=== PATIENT | male | born 1950 | race Caucasian/White ===

== ENCOUNTER 2017-05-29 09:55 | Outpatient (CLI) | payer MEDICARE ==
--- NOTE | 2017-05-29 10:59 | RAD ---
TWO VIEWS CHEST: HISTORY: Dyspnea. FINDINGS: PA and lateral views of the chest are obtained on 05/29/17. Comparison is made to a previous exam fr om 11/11/13. Two views chest demonstrate lower thoracic and upper lumbar posterior spinal hardware placement. The lungs are well aerated. No evidence of active intrathoracic disease is seen. No evidence of eff usions or pneumonia seen. There is some elevation of the right hemidiaphragm. IMPRESSION: 1. No evidence of acute intrathoracic abnormalities. 2. Elevated right hemidiaphragm. POS: [facility]
== END 2017-05-29 09:56 | disposition home or self-care (01) ==
LOC: RAD 09:55
PROVIDERS: ATTEND Internal Medicine
DX: R06.00 Dyspnea, unspecified (principal); J98.6 Disorders of diaphragm
CPT/HCPCS: 71020

== ENCOUNTER 2017-06-04 07:25 | Outpatient (CLI) | payer MEDICARE | END 2017-06-04 07:26 | disposition home or self-care (01) | LOC: CP 07:25 | PROVIDERS: ATTEND Internal Medicine | DX: R06.09 Other forms of dyspnea (principal); G47.33 Obstructive sleep apnea (adult) (pediatric) ==

== ENCOUNTER 2023-11-23 15:06 | Inpatient (IN) | payer MEDICARE ==
[~2023-11-23 15:06] MED LIST: Iopamidol 370 76% 100 ML VIAL ONE
[2023-11-23] MEDS ORDERED: Heparin 5,000 UNITS/ML VIAL ONE (15:51)
[2023-11-23] MEDS ORDERED: PHENYLEPHRINE-NS 100 MCG/ML 10 ML SYRINGE ONE (15:52)
[2023-11-23] MEDS ORDERED: Heparin 10,000 UNITS/ 10 ML VIAL ONE (15:52)
[2023-11-23] MEDS ORDERED: Atropine Sulfate 1 mg/10 ml Syringe ONE (15:52)
[2023-11-23] MEDS ORDERED: Verapamil 5 MG/2 ML VIAL ONE (15:52)
[2023-11-23] MEDS ORDERED: Nitroglycerin 50 MG/250 ML BOT 0 ML ONE (15:52)
[2023-11-23 16:04] LABS: #Basophils 0.04 10x3/uL (0.0-0.2); %Basophils 0.4 % (0.0-1.0); %Eosinophils 0.5 % (0.0-10.0); %Lymphocytes 12.5 % (21.0-51.0); %Monocytes 9.4 % (0.0-10.0); %Neutrophils 76.9 % (42.0-75.0); Hematocrit 39.8 % (42.0-52.0); Hemoglobin 13.5 g/dL (14.0-18.0); Mean Corpuscular HGB CONC 33.9 g/dL (32.0-36.0); Mean Corpuscular Hemoglobin 30.5 pg (27.0-31.0); Mean Platelet Volume 10.4 fL (7.4-10.4); Platelet Count 264 10x3/uL (130-400); RBC Distribution Width 13.3 % (11.5-14.5); Red Blood Cell (RBC) Count 4.42 mill/uL (4.70-6.10)
[2023-11-23 16:19] LABS: INR-International Normal Ratio 1.2
[2023-11-23 16:20] LABS: PTT 34.4 sec (22.9-36.1)
[2023-11-23 16:31] LABS: ALT (SGPT) 25 U/L (8-55); AST (SGOT) 36 U/L (5-34); Albumin 3.3 g/dL (3.4-4.8); Alkaline Phosphatase 82 U/L (40-110); Anion Gap 16 mmol/L (10-20); BUN (Urea Nitrogen) 45 mg/dL (8.4-25.7); Bilirubin, Total 1.6 mg/dL (0.2-1.2); Calc. Creatinine Clearance 0 mL/min (70-130); Calcium 9.3 mg/dL (7.8-10.44); Carbon Dioxide 22 mmol/L (23-31); Chloride 103 mmol/L (98-107); Estimated GFR 51; Globulin 3.1 g/dL (2.4-3.5); Glucose 238 mg/dL (83-110); Potassium 4.4 mmol/L (3.5-5.1); Protein, Total 6.4 g/dL (5.8-8.1); Sodium 137 mmol/L (136-145)
[2023-11-23 16:36] LABS: Critical Call Chem Troponin I NUR.EM10 @1635; Troponin I 25.249 ng/mL (< 0.028)
[2023-11-23] MEDS ORDERED: Zolpidem Tartrate 5 MG TAB PO PRN (16:39)
[2023-11-23] MEDS ORDERED: Milk Of Magnesia 30 ML UDCUP PO PRN (16:39)
[2023-11-23] MEDS ORDERED: Mag-Al 1200 mg/1200 mg/30 ML UDCUP PO PRN (16:39)
[2023-11-23] MEDS ORDERED: Acetaminophen/Codeine 30-300mg Tablet PO PRN (16:39)
[2023-11-23 17:24] VITALS: BMI 35.2
[2023-11-23] MEDS: Sodium Chloride 0.9% 500 ML IV SCH (18:22)
[2023-11-23 18:24] LABS: Hematocrit 36.9 % (42.0-52.0); Hemoglobin 12.4 g/dL (14.0-18.0); Platelet Count 235 10x3/uL (130-400)
[2023-11-23] MEDS: traMADol HCl 50 MG TAB PO PRN (18:57)
[2023-11-23] MEDS: Heparin 10,000 UNITS/ 10 ML VIAL SLOW IVP SCH (20:01)
[2023-11-23] MEDS: Heparin 25,000 units/D5W 500 ML IVPB SCH (20:01)
[2023-11-23] MEDS: Rosuvastatin 20 MG TAB PO SCH (20:10)
[2023-11-23 23:31] LABS: Critical Call Chem Troponin I RESULT DECREASING; Troponin I 23.232 ng/mL (< 0.028)
[2023-11-24 08:04] LABS: Albumin 2.9 g/dL (3.4-4.8); Calcium 8.9 mg/dL (7.8-10.44); Chloride 102 mmol/L (98-107); Globulin 3.5 g/dL (2.4-3.5); Glucose 312 mg/dL (83-110); Potassium 3.7 mmol/L (3.5-5.1); Protein, Total 6.4 g/dL (5.8-8.1); Sodium 134 mmol/L (136-145); Triglycerides 81 mg/dL (Less than 150)
[2023-11-24 08:05] LABS: ALT (SGPT) 26 U/L (8-55); AST (SGOT) 30 U/L (5-34); Alkaline Phosphatase 78 U/L (40-110); Anion Gap 18 mmol/L (10-20); BUN (Urea Nitrogen) 39 mg/dL (8.4-25.7); Bilirubin, Total 1.4 mg/dL (0.2-1.2); Calc. Creatinine Clearance 80 mL/min (70-130); Carbon Dioxide 18 mmol/L (23-31); Cardiac Risk 5.4 (Less than 4.5); Cholesterol 136 mg/dl (< 200 Desired); Estimated GFR 58; HDL Cholesterol 25 mg/dL (>60 Neg Risk); LDL Cholesterol, Calculated 95 mg/dL
[2023-11-24 10:07] LABS: #Basophils 0.05 10x3/uL (0.0-0.2); %Basophils 0.5 % (0.0-1.0); %Eosinophils 0.7 % (0.0-10.0); %Lymphocytes 14.3 % (21.0-51.0); %Neutrophils 74.2 % (42.0-75.0); Hematocrit 39.4 % (42.0-52.0); Hemoglobin 13.2 g/dL (14.0-18.0); Mean Corpuscular HGB CONC 33.5 g/dL (32.0-36.0); Mean Corpuscular Hemoglobin 31.1 pg (27.0-31.0); Mean Corpuscular Volume 92.7 fL (78.0-98.0); Mean Platelet Volume 11.3 fL (7.4-10.4); Platelet Count 251 10x3/uL (130-400); RBC Distribution Width 13.4 % (11.5-14.5); Red Blood Cell (RBC) Count 4.25 mill/uL (4.70-6.10)
[2023-11-24] MEDS: Aspirin Chewable 81 MG TAB PO SCH (10:11)
[2023-11-24 12:12] LABS: Free T4 (Free Thyroxine) 1.18 ng/dL (0.70-1.48); Thyroid Stimulating Hormone 1.0394 uIU/mL (0.35-4.94)
[2023-11-24 12:45] LABS: Hemoglobin A1c 7.4 % (4.0-6.0)
[2023-11-24] MEDS: Communication Order-Pharmacy FS ONE (12:46)
[2023-11-24] MEDS: Guaifenesin DM 100-10/5 ML UDCUP PO PRN (16:06)
[2023-11-24] MEDS: Morphine 4 MG/ML VIAL SLOW IVP PRN (21:04)
[2023-11-25] MEDS: traMADol HCl 50 MG TAB PO PRN ×2 (06:20→23:44)
[2023-11-25 06:26] LABS: #Basophils 0.07 10x3/uL (0.0-0.2); %Basophils 0.7 % (0.0-1.0); %Eosinophils 0.8 % (0.0-10.0); %Lymphocytes 14.3 % (21.0-51.0); %Neutrophils 72.9 % (42.0-75.0); Hemoglobin 13.2 g/dL (14.0-18.0); Mean Corpuscular Hemoglobin 29.7 pg (27.0-31.0); Mean Corpuscular Volume 90.1 fL (78.0-98.0); Mean Platelet Volume 10.6 fL (7.4-10.4); Platelet Count 257 10x3/uL (130-400); RBC Distribution Width 13.2 % (11.5-14.5); Red Blood Cell (RBC) Count 4.44 mill/uL (4.70-6.10)
[2023-11-25] MEDS ORDERED: fentaNYL PF 100 MCG/2 ML SYRINGE ONE ×6 (06:56→12:37)
[2023-11-25] MEDS ORDERED: PROPOFOL 20 ML ONE (06:56)
[2023-11-25] MEDS ORDERED: Midazolam HCl 2 mg/2 ml Vial ONE (06:56)
[2023-11-25] MEDS ORDERED: Esmolol 100 MG/10 ML VIAL ONE (06:57)
[2023-11-25] MEDS ORDERED: Lidocaine 2% PF 5 ML VIAL ONE (06:57)
[2023-11-25] MEDS ORDERED: Norepinephrine 4 MG/4 ML VIAL ONE (06:57)
[2023-11-25] MEDS ORDERED: CEFAZOLIN 1 GM VIAL ONE (06:57)
[2023-11-25] MEDS ORDERED: Rocuronium Bromide 10 MG/ML (10ML VIAL) ONE ×2 (06:57→10:22)
[2023-11-25] MEDS ORDERED: Lidocaine 2% PF 100 mg/5 ml Syringe ONE ×2 (06:57→09:37)
[2023-11-25] MEDS ORDERED: Aminocaproic Acid 5 GM/20 ML VIAL ONE ×2 (06:57→09:37)
[2023-11-25] MEDS ORDERED: Sodium Chloride 0.9% 250 ML 250 ML ONE (06:57)
[2023-11-25] MEDS ORDERED: PHENYLEPHRINE-NS 100 MCG/ML 10 ML SYRINGE ONE ×2 (06:57→08:11)
[2023-11-25 07:21] LABS: ALT (SGPT) 30 U/L (8-55); AST (SGOT) 27 U/L (5-34); Albumin 2.9 g/dL (3.4-4.8); Alkaline Phosphatase 92 U/L (40-110); Anion Gap 16 mmol/L (10-20); BUN (Urea Nitrogen) 35 mg/dL (8.4-25.7); Bilirubin, Total 1.1 mg/dL (0.2-1.2); Calc. Creatinine Clearance 87 mL/min (70-130); Calcium 9.1 mg/dL (7.8-10.44); Carbon Dioxide 22 mmol/L (23-31); Chloride 100 mmol/L (98-107); Estimated GFR 63; Globulin 3.7 g/dL (2.4-3.5); Glucose 201 mg/dL (83-110); Potassium 3.9 mmol/L (3.5-5.1); Protein, Total 6.6 g/dL (5.8-8.1); Sodium 134 mmol/L (136-145)
[2023-11-25] MEDS ORDERED: Dexamethasone 4 mg/ml Vial ONE (08:11)
[2023-11-25] MEDS ORDERED: Albumin 5% 500 ML ONE (08:11)
[2023-11-25] MEDS ORDERED: EPINEPHrine 1 MG/ML VIAL ONE (08:11)
[2023-11-25] MEDS ORDERED: Bupivacaine PF 0.5% 30 ML VIAL ONE (08:11)
[2023-11-25] MEDS ORDERED: Heparin 10,000 UNITS/1 ML VIAL 30,000 UNITS in Sodium Chloride 0.9% 1,000 ML FS SCH (08:15)
[2023-11-25] MEDS ORDERED: Glycopyrrolate 0.2 MG/ML 5 ML SYRINGE ONE (09:34)
[2023-11-25] MEDS ORDERED: Nitroglycerin 50 MG/250 ML BOT ONE (09:37)
[2023-11-25] MEDS ORDERED: Mannitol 12.5 GM/50 ML ONE (09:37)
[2023-11-25] MEDS ORDERED: Calcium Chloride 1 GM/10 ML Abboject SYRINGE ONE (09:37)
[2023-11-25] MEDS ORDERED: Magnesium 5 GM/10 ML VIAL ONE (09:37)
[2023-11-25] MEDS ORDERED: Vancomycin 1 GM VIAL ONE (09:37)
[2023-11-25] MEDS ORDERED: Potassium Chloride 60 mEq (30 mL) VIAL ONE (09:37)
[2023-11-25] MEDS ORDERED: Cardioplegic Soln 1,000 ML BAG ONE (09:37)
[2023-11-25] MEDS ORDERED: Papaverine 60 MG/2 ML VIAL ONE (09:37)
[2023-11-25] MEDS ORDERED: Sodium Bicarb 50 mEq/50 ML VIAL ONE (09:37)
[2023-11-25] MEDS ORDERED: Thrombin 5000 UNITS/5 ML VIAL ONE (09:37)
[2023-11-25] MEDS ORDERED: Protamine Sulfate 250 MG/25 ML VIAL ONE (09:37)
[2023-11-25] MEDS ORDERED: Heparin 30,000 units/30 ml VIAL ONE (09:37)
[2023-11-25] MEDS ORDERED: Heparin 5,000 UNITS/ML VIAL ONE (09:37)
[2023-11-25] MEDS ORDERED: Insulin Regular 300 UNITS/3 ML VIAL ONE (10:09)
[2023-11-25] MEDS ORDERED: Sodium Chloride 0.9% 100 ML ONE (10:10)
[2023-11-25 10:15] LABS: Actual Bicarbonate (HCO3a) 21.4 mEq/L (22-28); Base Excess (BEa) -2.1 mEq/L (-2.0 to +3.0); CO2 Tension 33.1 mmHg (35.0-45.0); Carboxyhemoglobin (COHb) 0.9 gm% (0.0-3.0); Hematocrit-ABG 41 % (42.0-52.0); Hemoglobin (Hb) 13.8 g/dL (14.0-18.0); O2 Tension (PaO2), arterial 302.2 mmHg (> 70.0); Potassium - ABG Lab 3.56 mmol/L (3.70-5.30); pH, Arterial 7.429 (7.35-7.45)
[2023-11-25 11:21] LABS: Actual Bicarbonate (HCO3a) 21.2 mEq/L (22-28); CO2 Tension 35.1 mmHg (35.0-45.0); Carboxyhemoglobin (COHb) 0.5 gm% (0.0-3.0); Hematocrit-ABG 36 % (42.0-52.0); Hemoglobin (Hb) 12.4 g/dL (14.0-18.0); O2 Tension (PaO2), arterial 223.3 mmHg (> 70.0); Potassium - ABG Lab 3.37 mmol/L (3.70-5.30); pH, Arterial 7.399 (7.35-7.45)
[2023-11-25 11:51] LABS: Actual Bicarbonate (HCO3a) 24.3 mEq/L (22-28); Base Excess (BEa) -2.9 mEq/L (-2.0 to +3.0); CO2 Tension 53.9 mmHg (35.0-45.0); Calcium, Ionized (arterial) 1.06 mmol/L (1.12-1.30); Carboxyhemoglobin (COHb) 0.3 gm% (0.0-3.0); Hematocrit-ABG 30 % (42.0-52.0); Hemoglobin (Hb) 10.1 g/dL (14.0-18.0); O2 Tension (PaO2), arterial 483.2 mmHg (> 70.0); Potassium - ABG Lab 3.95 mmol/L (3.70-5.30); pH, Arterial 7.272 (7.35-7.45)
[2023-11-25] MEDS ORDERED: Protamine Sulfate 50 MG/5 ML VIAL ONE (12:15)
[2023-11-25 12:25] LABS: Actual Bicarbonate (HCO3a) 25.5 mEq/L (22-28); Calcium, Ionized (arterial) 1.07 mmol/L (1.12-1.30); Carboxyhemoglobin (COHb) 0.4 gm% (0.0-3.0); Hematocrit-ABG 25 % (42.0-52.0); Hemoglobin (Hb) 8.6 g/dL (14.0-18.0); O2 Tension (PaO2), arterial 381.8 mmHg (> 70.0); Potassium - ABG Lab 4.25 mmol/L (3.70-5.30); pH, Arterial 7.309 (7.35-7.45)
[2023-11-25 12:51] LABS: Actual Bicarbonate (HCO3a) 22.7 mEq/L (22-28); Base Excess (BEa) -2.2 mEq/L (-2.0 to +3.0); CO2 Tension 39.2 mmHg (35.0-45.0); Calcium, Ionized (arterial) 1.13 mmol/L (1.12-1.30); Carboxyhemoglobin (COHb) 0.1 gm% (0.0-3.0); Hematocrit-ABG 28 % (42.0-52.0); Hemoglobin (Hb) 9.6 g/dL (14.0-18.0); Potassium - ABG Lab 3.97 mmol/L (3.70-5.30); Puncture Site Arterial Line
[2023-11-25] MEDS ORDERED: fentaNYL 50 mcg/mL 1 mL Vial ONE (13:03)
[2023-11-25] MEDS ORDERED: Albumin 5% 12.5 GM (250 mL) BOT IVPB PRN ×2 (13:19)
[2023-11-25] MEDS ORDERED: Promethazine HCl 25 MG/ML VIAL IM PRN (13:19)
[2023-11-25] MEDS ORDERED: Bisacodyl 10 MG SUPP PR PRN (13:19)
[2023-11-25] MEDS ORDERED: Bisacodyl 5 MG TAB PO PRN (13:19)
[2023-11-25] MEDS ORDERED: hydrALAZINE 20 MG/ML VIAL SLOW IVP PRN (13:19)
[2023-11-25] MEDS ORDERED: NOREPINEPHRINE 8 MG/250 ML-D5W 250 ML IVPB PRN (13:19)
[2023-11-25] MEDS ORDERED: Ondansetron PF 4 MG/2 ML Vial IVP PRN (13:19)
[2023-11-25] MEDS ORDERED: Ipratropium/Albuterol 3 ML NEB NEB PRN (13:19)
[2023-11-25] MEDS ORDERED: Morphine 2 MG/ML VIAL SLOW IVP PRN (13:19)
[2023-11-25] MEDS ORDERED: Mag-Al 1200 mg/1200 mg/30 ML UDCUP PO PRN (13:19)
[2023-11-25] MEDS ORDERED: Acetaminophen 325 MG TAB PO PRN (13:19)
[2023-11-25 13:45] LABS: Actual Bicarbonate (HCO3a) 21.4 mEq/L (22-28); Base Excess (BEa) -2.9 mEq/L (-2.0 to +3.0); CO2 Tension 35.5 mmHg (35.0-45.0); Calcium, Ionized (arterial) 1.07 mmol/L (1.12-1.30); Carboxyhemoglobin (COHb) 0.5 gm% (0.0-3.0); Hematocrit-ABG 35 % (42.0-52.0); Hemoglobin (Hb) 11.8 g/dL (14.0-18.0); O2 Tension (PaO2), arterial 110.1 mmHg (> 70.0); pH, Arterial 7.398 (7.35-7.45)
[2023-11-25] MEDS ORDERED: Dextrose 50% Abboject 50 ML SYRINGE SLOW IVP PRN (13:45)
[2023-11-25] MEDS ORDERED: Glucagon 1 MG/ML KIT SC PRN (13:45)
[2023-11-25] MEDS ORDERED: Dextrose 5% in Water 1,000 ML IV PRN (13:45)
[2023-11-25 13:48] LABS: ALV-art Gradient 130.725 mmHg (0-20); Puncture Site Arterial Line
[2023-11-25] MEDS: Insulin Regular, Human 100 UNIT/ML 10 ML VIAL SC PRN (13:49)
[2023-11-25] MEDS: D5 1/2 NS w/20 mEq KCL 1,000 ML IV SCH (13:49)
[2023-11-25 13:51] LABS: #Basophils 0.06 10x3/uL (0.0-0.2); %Basophils 0.4 % (0.0-1.0); %Eosinophils 0.8 % (0.0-10.0); %Lymphocytes 7.5 % (21.0-51.0); %Neutrophils 82.4 % (42.0-75.0); Hematocrit 32.8 % (42.0-52.0); Mean Corpuscular HGB CONC 33.5 g/dL (32.0-36.0); Mean Corpuscular Hemoglobin 30.6 pg (27.0-31.0); Mean Corpuscular Volume 91.4 fL (78.0-98.0); Platelet Count 176 10x3/uL (130-400); RBC Distribution Width 13.2 % (11.5-14.5); Red Blood Cell (RBC) Count 3.59 mill/uL (4.70-6.10)
[2023-11-25] MEDS: Nitroglycerin 50 MG/250 ML BOT 250 ML IVPB PRN (13:52)
[2023-11-25 14:03] LABS: INR-International Normal Ratio 1.5; PTT 34.3 sec (22.9-36.1); Prothrombin Time 18.5 sec (12.0-14.7)
[2023-11-25] MEDS: Post-Op Insulin Drip Protocol IVPB ONE (14:16)
[2023-11-25] MEDS: Magnesium 2 GM/50 ML(in water) 2 GM in Premix 1 BAG IVPB SCH (14:20)
[2023-11-25] MEDS: Potassium Chloride 20 MEQ (100 mL) BAG IVPB PRN (14:20)
[2023-11-25 14:59] LABS: Anion Gap 15 mmol/L (10-20); BUN (Urea Nitrogen) 28 mg/dL (8.4-25.7); Calc. Creatinine Clearance 125 mL/min (70-130); Calcium 7.4 mg/dL (7.8-10.44); Carbon Dioxide 18 mmol/L (23-31); Chloride 110 mmol/L (98-107); Estimated GFR 92; Glucose 145 mg/dL (83-110); Sodium 139 mmol/L (136-145)
[2023-11-25] MEDS: CEFAZOLIN 2 GM in Sodium Chloride 0.9% 100 ML IVPB SCH (15:10)
[2023-11-25] MEDS: niCARdipine 25 MG in Sodium Chloride 0.9% 250 ML 250 ML IVPB PRN (16:03)
[2023-11-25] MEDS: fentaNYL 50 mcg/mL 1 mL Vial SLOW IVP PRN ×2 (17:00→17:28)
[2023-11-25 19:27] LABS: Hematocrit 37.6 % (42.0-52.0); Hemoglobin 12.3 g/dL (14.0-18.0)
[2023-11-25 19:31] LABS: Hematocrit 38.4 % (42.0-52.0); Hemoglobin 12.7 g/dL (14.0-18.0); Platelet Count 289 10x3/uL (130-400)
[2023-11-25 19:36] LABS: Actual Bicarbonate (HCO3a) 19.4 mEq/L (22-28); Base Excess (BEa) -5.1 mEq/L (-2.0 to +3.0); CO2 Tension 34.6 mmHg (35.0-45.0); Calcium, Ionized (arterial) 1.12 mmol/L (1.12-1.30); Hematocrit-ABG 39 % (42.0-52.0); Hemoglobin (Hb) 13.1 g/dL (14.0-18.0); O2 Tension (PaO2), arterial 64.1 mmHg (> 70.0); Potassium - ABG Lab 4.27 mmol/L (3.70-5.30); pH, Arterial 7.367 (7.35-7.45)
[2023-11-25 19:37] LABS: Potassium 4.4 mmol/L (3.5-5.1)
[2023-11-25 19:37] LABS: Puncture Site Arterial Line
[2023-11-25] MEDS: Famotidine/PF 20 mg/2ml Vial SLOW IVP SCH (19:38)
[2023-11-25] MEDS: Atorvastatin Calcium 20 MG TAB PO SCH (20:35)
[2023-11-25 22:20] LABS: Actual Bicarbonate (HCO3a) 21.8 mEq/L (22-28); Base Excess (BEa) -3.4 mEq/L (-2.0 to +3.0); CO2 Tension 39.9 mmHg (35.0-45.0); Calcium, Ionized (arterial) 1.14 mmol/L (1.12-1.30); Carboxyhemoglobin (COHb) 0.9 gm% (0.0-3.0); Hematocrit-ABG 39 % (42.0-52.0); Hemoglobin (Hb) 13.4 g/dL (14.0-18.0); O2 Tension (PaO2), arterial 64.6 mmHg (> 70.0); Potassium - ABG Lab 4.36 mmol/L (3.70-5.30); pH, Arterial 7.356 (7.35-7.45)
[2023-11-25 22:21] LABS: ALV-art Gradient 170.725 mmHg (0-20); Puncture Site Arterial Line
[2023-11-25] MEDS: Sodium Bicarb 50 mEq/50 ML VIAL IVP SCH (22:46)
[2023-11-25] MEDS: Ketorolac Tromethamine 30 MG (1 mL) VIAL IVP SCH (22:47)
[2023-11-26] MEDS: Insulin Reg, Human 100 UNITS in Sodium Chloride 0.9% 100 ML IVPB SCH (01:55)
[2023-11-26 04:25] LABS: #Basophils Less than 0.03 10x3/uL (0.0-0.2); #Eosinphils Less than 0.03 10x3/uL (0.0-0.7); %Basophils 0.1 % (0.0-1.0); %Lymphocytes 3.1 % (21.0-51.0); %Monocytes 7.1 % (0.0-10.0); %Neutrophils 89.3 % (42.0-75.0); Hematocrit 35.5 % (42.0-52.0); Hemoglobin 11.9 g/dL (14.0-18.0); Mean Corpuscular HGB CONC 33.5 g/dL (32.0-36.0); Mean Corpuscular Hemoglobin 31.2 pg (27.0-31.0); Mean Corpuscular Volume 93.2 fL (78.0-98.0); Mean Platelet Volume 10.4 fL (7.4-10.4); Platelet Count 227 10x3/uL (130-400); RBC Distribution Width 13.4 % (11.5-14.5); Red Blood Cell (RBC) Count 3.81 mill/uL (4.70-6.10)
[2023-11-26 05:07] LABS: Anion Gap 14 mmol/L (10-20); BUN (Urea Nitrogen) 31 mg/dL (8.4-25.7); Calc. Creatinine Clearance 83 mL/min (70-130); Calcium 8.1 mg/dL (7.8-10.44); Carbon Dioxide 21 mmol/L (23-31); Chloride 110 mmol/L (98-107); Estimated GFR 60; Glucose 156 mg/dL (83-110); Potassium 4.1 mmol/L (3.5-5.1); Sodium 141 mmol/L (136-145)
[2023-11-26] MEDS ORDERED: Glucagon 1 MG/ML KIT IM PRN (07:07)
[2023-11-26] MEDS ORDERED: Dextrose 50% Abboject 50 ML SYRINGE SLOW IVP PRN (07:07)
[2023-11-26] MEDS ORDERED: Dextrose 5% in Water 1,000 ML IV PRN (07:07)
[2023-11-26] MEDS: Potassium Chloride 10 MEQ TAB PO SCH (07:52)
[2023-11-26] MEDS: Pantoprazole DR 40 MG TAB PO SCH (08:09)
[2023-11-26] MEDS: Furosemide 40 MG TAB PO SCH (08:09)
[2023-11-26] MEDS: Aspirin 325 MG TAB PO SCH (08:13)
[2023-11-26] MEDS: Magnesium 2 GM/50 ML(in water) 2 GM in Premix 1 BAG IVPB SCH (08:13)
[2023-11-26] MEDS: Ipratropium/Albuterol 3 ML NEB NEB SCH (13:29)
[2023-11-26] MEDS ORDERED: Insulin Glargine 30 UNITS/0.3 ML VIAL SC PRN (13:33)
[2023-11-26] MEDS: HumaLOG 300 UNITS/3 ML VIAL SC PRN (17:10)
[2023-11-27] MEDS: Guaifenesin DM 100-10/5 ML UDCUP PO PRN (05:19)
[2023-11-27 08:04] LABS: #Basophils Less than 0.03 10x3/uL (0.0-0.2); %Basophils 0.1 % (0.0-1.0); %Eosinophils 0.2 % (0.0-10.0); %Lymphocytes 8.1 % (21.0-51.0); %Monocytes 8.4 % (0.0-10.0); %Neutrophils 82.8 % (42.0-75.0); Hematocrit 34.5 % (42.0-52.0); Hemoglobin 11.4 g/dL (14.0-18.0); Mean Corpuscular Hemoglobin 30.6 pg (27.0-31.0); Mean Corpuscular Volume 92.5 fL (78.0-98.0); Mean Platelet Volume 10.6 fL (7.4-10.4); Platelet Count 239 10x3/uL (130-400); RBC Distribution Width 13.7 % (11.5-14.5); Red Blood Cell (RBC) Count 3.73 mill/uL (4.70-6.10)
[2023-11-27 08:18] LABS: ALT (SGPT) 12 U/L (8-55); AST (SGOT) 28 U/L (5-34); Albumin 2.2 g/dL (3.4-4.8); Alkaline Phosphatase 95 U/L (40-110); Anion Gap 17 mmol/L (10-20); BUN (Urea Nitrogen) 39 mg/dL (8.4-25.7); Bilirubin, Total 0.6 mg/dL (0.2-1.2); Calc. Creatinine Clearance 67 mL/min (70-130); Calcium 8.5 mg/dL (7.8-10.44); Carbon Dioxide 20 mmol/L (23-31); Chloride 103 mmol/L (98-107); Estimated GFR 46; Globulin 3.3 g/dL (2.4-3.5); Glucose 225 mg/dL (83-110); Potassium 4.5 mmol/L (3.5-5.1); Protein, Total 5.5 g/dL (5.8-8.1); Sodium 135 mmol/L (136-145)
[2023-11-27] MEDS: Metolazone 5 MG TAB PO SCH (08:37)
[2023-11-27] MEDS: Melatonin 3 MG TAB PO SCH (20:02)
[2023-11-27] MEDS ORDERED: Amiodarone 150 MG/3 ML VIAL ONE (23:59)
[2023-11-27] MEDS ORDERED: Sodium Bicarb 50 MEQ/50 ML Abboject 8.4% SYRINGE ONE ×2 (23:59)
[2023-11-27] MEDS ORDERED: EPINEPHrine 1 MG/10 ML Abboject SYRINGE ONE ×2 (23:59)
[2023-11-27] MEDS ORDERED: Etomidate 40 MG (20 mL) VIAL ONE (23:59)
[2023-11-27] MEDS ORDERED: Rocuronium Bromide 10 MG/ML (10ML VIAL) ONE (23:59)
[2023-11-28] MEDS ORDERED: Amiodarone 150 MG/3 ML VIAL ONE
[2023-11-28 01:17] LABS: #Basophils Less than 0.03 10x3/uL (0.0-0.2); %Basophils 0.1 % (0.0-1.0); %Lymphocytes 21.5 % (21.0-51.0); %Monocytes 12.5 % (0.0-10.0); %Neutrophils 64.1 % (42.0-75.0); Hematocrit 37.3 % (42.0-52.0); Hemoglobin 12.1 g/dL (14.0-18.0); Mean Corpuscular HGB CONC 32.4 g/dL (32.0-36.0); Mean Corpuscular Hemoglobin 30.8 pg (27.0-31.0); Mean Corpuscular Volume 94.9 fL (78.0-98.0); Mean Platelet Volume 11.1 fL (7.4-10.4); Platelet Count 221 10x3/uL (130-400); RBC Distribution Width 13.9 % (11.5-14.5); Red Blood Cell (RBC) Count 3.93 mill/uL (4.70-6.10)
[2023-11-28 01:27] LABS: Actual Bicarbonate (HCO3a) 23.2 mEq/L (22-28); Base Excess (BEa) -0.7 mEq/L (-2.0 to +3.0); CO2 Tension 35.7 mmHg (35.0-45.0); Calcium, Ionized (arterial) 1.09 mmol/L (1.12-1.30); Carboxyhemoglobin (COHb) 0.4 gm% (0.0-3.0); Hematocrit-ABG 36 % (42.0-52.0); Hemoglobin (Hb) 12.3 g/dL (14.0-18.0); Potassium - ABG Lab 3.82 mmol/L (3.70-5.30)
[2023-11-28 01:28] LABS: Puncture Site LBA
[2023-11-28 01:29] LABS: ALV-art Gradient 603.375 mmHg (0-20)
[2023-11-28] MEDS ORDERED: Propofol BOLUS 1,000 MG/100 ML VIAL IV PRN (01:30)
[2023-11-28] MEDS ORDERED: DISCONTINUE PREVIOUS NARCOTIC PAIN MEDICATIONS AND BENZODIAZEPINES FS SCH (01:30)
[2023-11-28] MEDS ORDERED: Fentanyl BOLUS 250 ML IVPB PRN (01:30)
[2023-11-28] MEDS ORDERED: Morphine 2 MG/ML VIAL SLOW IVP PRN (01:30)
[2023-11-28 02:00] LABS: ALT (SGPT) 14 U/L (8-55); AST (SGOT) 36 U/L (5-34); Albumin 2.3 g/dL (3.4-4.8); Alkaline Phosphatase 122 U/L (40-110); Anion Gap 17 mmol/L (10-20); BUN (Urea Nitrogen) 42 mg/dL (8.4-25.7); Bilirubin, Total 0.7 mg/dL (0.2-1.2); Calc. Creatinine Clearance 66 mL/min (70-130); Calcium 9.2 mg/dL (7.8-10.44); Carbon Dioxide 21 mmol/L (23-31); Chloride 102 mmol/L (98-107); Estimated GFR 46; Globulin 3.4 g/dL (2.4-3.5); Glucose 166 mg/dL (83-110); Magnesium 2.7 mg/dL (1.6-2.6); Phosphorus 3.8 mg/dL (2.3-4.7); Potassium 5.7 mmol/L (3.5-5.1); Protein, Total 5.7 g/dL (5.8-8.1); Sodium 134 mmol/L (136-145)
[2023-11-28 02:05] LABS: Critical Call Chem Troponin I RESULT DECREASING; Troponin I 22.793 ng/mL (< 0.028)
[2023-11-28] MEDS: Ventilator Sedation Protocol 1 EACH FS ONE (02:18)
[2023-11-28] MEDS: NOREPINEPHRINE 8 MG/250 ML-D5W 250 ML ONE (02:20)
[2023-11-28] MEDS: Propofol 1,000 MG/100 ML VIAL IV ONE (02:20)
[2023-11-28 02:21] LABS: Lactic Acid 4.1 mmol/L (0.5-2.2)
[2023-11-28] MEDS: Rocuronium Bromide 10 MG/ML (10ML VIAL) ONE (02:23)
[2023-11-28] MEDS: Magnesium 2 GM/50 ML(in water) 2 GM in Premix 1 BAG IVPB SCH (02:27)
[2023-11-28] MEDS: Lactated Ringer's 1,000 ML IV SCH (02:28)
[2023-11-28] MEDS: Fentanyl CADD 100 ML IV SCH (03:44)
[2023-11-28 04:09] LABS: Lactic Acid 1.8 mmol/L (0.5-2.2)
[2023-11-28] MEDS: Sodium Bicarb 50 mEq/50 ML VIAL ONE (04:40)
[2023-11-28] MEDS: DOBUTamine 500 mg/250 ml 250 ML IVPB SCH (04:45)
[2023-11-28 04:46] LABS: Anion Gap 17 mmol/L (10-20); BUN (Urea Nitrogen) 42 mg/dL (8.4-25.7); Calc. Creatinine Clearance 69 mL/min (70-130); Calcium 8.8 mg/dL (7.8-10.44); Carbon Dioxide 22 mmol/L (23-31); Chloride 99 mmol/L (98-107); Estimated GFR 48; Glucose 194 mg/dL (83-110); Sodium 134 mmol/L (136-145)
[2023-11-28] MEDS: Sodium Bicarb 50 mEq/50 ML VIAL IVP SCH (05:21)
[2023-11-28] MEDS: DOBUTamine 500 mg/250 ml 250 ML ONE (05:21)
[2023-11-28] MEDS: EPINEPHrine 1 MG/10 ML Abboject SYRINGE IVP SCH (05:21)
[2023-11-28] MEDS: Lidocaine 2 gm/D5W 500 ml 500 ML IVPB SCH (05:45)
[2023-11-28 06:04] LABS: Actual Bicarbonate (HCO3a) 27.4 mEq/L (22-28); Analyzer IN Cardio ER; Base Excess (BEa) 1.7 mEq/L (-2.0 to +3.0); CO2 Tension 47.2 mmHg (35.0-45.0); Calcium, Ionized (arterial) 1.09 mmol/L (1.12-1.30); Hematocrit-ABG 37 % (42.0-52.0); Hemoglobin (Hb) 12.7 g/dL (14.0-18.0); O2 Tension (PaO2), arterial 75.2 mmHg (> 70.0); Potassium - ABG Lab 4.16 mmol/L (3.70-5.30); pH, Arterial 7.381 (7.35-7.45)
[2023-11-28 06:05] LABS: Puncture Site RRA
[2023-11-28 06:17] LABS: #Basophils 0.03 10x3/uL (0.0-0.2); %Basophils 0.2 % (0.0-1.0); %Eosinophils 0.6 % (0.0-10.0); %Lymphocytes 16.3 % (21.0-51.0); %Monocytes 6.4 % (0.0-10.0); %Neutrophils 74.4 % (42.0-75.0); Hematocrit 36.7 % (42.0-52.0); Hemoglobin 12.4 g/dL (14.0-18.0); Mean Corpuscular HGB CONC 33.8 g/dL (32.0-36.0); Mean Corpuscular Hemoglobin 30.7 pg (27.0-31.0); Mean Corpuscular Volume 90.8 fL (78.0-98.0); Mean Platelet Volume 10.5 fL (7.4-10.4); Platelet Count 291 10x3/uL (130-400); RBC Distribution Width 13.9 % (11.5-14.5); Red Blood Cell (RBC) Count 4.04 mill/uL (4.70-6.10)
[2023-11-28 06:29] LABS: INR-International Normal Ratio 1.4; Lactic Acid 7.1 mmol/L (0.5-2.2); Prothrombin Time 17.3 sec (12.0-14.7)
[2023-11-28] MEDS: Sodium Chloride 0.9% 1,000 ML IV SCH (06:30)
[2023-11-28 06:33] LABS: ALT (SGPT) 18 U/L (8-55); AST (SGOT) 45 U/L (5-34); Albumin 2.1 g/dL (3.4-4.8); Alkaline Phosphatase 122 U/L (40-110); Anion Gap 17 mmol/L (10-20); BUN (Urea Nitrogen) 42 mg/dL (8.4-25.7); Bilirubin, Total 0.9 mg/dL (0.2-1.2); Calc. Creatinine Clearance 61 mL/min (70-130); Calcium 8.3 mg/dL (7.8-10.44); Carbon Dioxide 26 mmol/L (23-31); Chloride 98 mmol/L (98-107); Estimated GFR 40; Globulin 3.3 g/dL (2.4-3.5); Glucose 246 mg/dL (83-110); Magnesium 4.3 mg/dL (1.6-2.6); Potassium 3.4 mmol/L (3.5-5.1); Protein, Total 5.4 g/dL (5.8-8.1); Sodium 138 mmol/L (136-145)
[2023-11-28 06:43] LABS: Critical Call Chem Troponin I ICU.UKA@0642; Troponin I 22.944 ng/mL (< 0.028)
[2023-11-28] MEDS: Lidocaine 2% PF 100 mg/5 ml Syringe IVP SCH (07:00)
[2023-11-28] MEDS: Dextrose 5 % And 0.9 % NaCl 1,000 ML IV SCH (08:29)
[2023-11-28 10:28] LABS: Actual Bicarbonate (HCO3a) 23.5 mEq/L (22-28); Base Excess (BEa) 1.9 mEq/L (-2.0 to +3.0); CO2 Tension 28.1 mmHg (35.0-45.0); Calcium, Ionized (arterial) 1.01 mmol/L (1.12-1.30); Carboxyhemoglobin (COHb) 0.6 gm% (0.0-3.0); Hematocrit-ABG 35 % (42.0-52.0); O2 Tension (PaO2), arterial 102.6 mmHg (> 70.0); Potassium - ABG Lab 3.84 mmol/L (3.70-5.30); pH, Arterial 7.541 (7.35-7.45)
[2023-11-28 10:35] LABS: ALV-art Gradient 361.375 mmHg (0-20); Puncture Site ALINE
[2023-11-28 12:19] LABS: #Basophils Less than 0.03 10x3/uL (0.0-0.2); %Basophils 0.1 % (0.0-1.0); %Eosinophils 0.3 % (0.0-10.0); %Lymphocytes 4.5 % (21.0-51.0); %Neutrophils 88.3 % (42.0-75.0); Hemoglobin 11.2 g/dL (14.0-18.0); Mean Corpuscular HGB CONC 33.9 g/dL (32.0-36.0); Mean Corpuscular Hemoglobin 30.5 pg (27.0-31.0); Mean Corpuscular Volume 89.9 fL (78.0-98.0); Mean Platelet Volume 10.4 fL (7.4-10.4); Platelet Count 296 10x3/uL (130-400); RBC Distribution Width 13.8 % (11.5-14.5); Red Blood Cell (RBC) Count 3.67 mill/uL (4.70-6.10)
[2023-11-28 12:35] LABS: Anion Gap 12 mmol/L (10-20); BUN (Urea Nitrogen) 43 mg/dL (8.4-25.7); Calc. Creatinine Clearance 64 mL/min (70-130); Calcium 7.7 mg/dL (7.8-10.44); Carbon Dioxide 25 mmol/L (23-31); Chloride 101 mmol/L (98-107); Estimated GFR 42; Glucose 319 mg/dL (83-110); Sodium 134 mmol/L (136-145)
[2023-11-28] MEDS: Amiodarone 450 MG, Admixture Fee 1 EACH in Dextrose 5% in Water 250 ML IVPB SCH (13:10)
[2023-11-28] MEDS: Lorazepam 2 MG/ML VIAL SLOW IVP PRN (16:12)
[2023-11-28 17:05] VITALS: BMI 36.6
[2023-11-29 04:12] LABS: #Basophils Less than 0.03 10x3/uL (0.0-0.2); %Basophils 0.1 % (0.0-1.0); %Eosinophils 2.3 % (0.0-10.0); %Lymphocytes 9.6 % (21.0-51.0); %Monocytes 7.5 % (0.0-10.0); %Neutrophils 80.1 % (42.0-75.0); Hematocrit 32.8 % (42.0-52.0); Hemoglobin 11.1 g/dL (14.0-18.0); Mean Corpuscular HGB CONC 33.8 g/dL (32.0-36.0); Mean Corpuscular Hemoglobin 30.2 pg (27.0-31.0); Mean Corpuscular Volume 89.4 fL (78.0-98.0); Mean Platelet Volume 10.3 fL (7.4-10.4); Platelet Count 300 10x3/uL (130-400); RBC Distribution Width 14.1 % (11.5-14.5); Red Blood Cell (RBC) Count 3.67 mill/uL (4.70-6.10)
[2023-11-29 04:29] LABS: Lactic Acid 1.5 mmol/L (0.5-2.2)
[2023-11-29 04:35] LABS: ALT (SGPT) 18 U/L (8-55); AST (SGOT) 38 U/L (5-34); Albumin 1.8 g/dL (3.4-4.8); Alkaline Phosphatase 99 U/L (40-110); Anion Gap 12 mmol/L (10-20); BUN (Urea Nitrogen) 39 mg/dL (8.4-25.7); Bilirubin, Total 0.7 mg/dL (0.2-1.2); Calc. Creatinine Clearance 64 mL/min (70-130); Calcium 7.6 mg/dL (7.8-10.44); Carbon Dioxide 24 mmol/L (23-31); Chloride 103 mmol/L (98-107); Estimated GFR 43; Globulin 3.1 g/dL (2.4-3.5); Glucose 250 mg/dL (83-110); Potassium 3.6 mmol/L (3.5-5.1); Protein, Total 4.9 g/dL (5.8-8.1); Sodium 135 mmol/L (136-145)
[2023-11-29] MEDS: Propofol 1,000 MG/100 ML VIAL IV PRN (10:24)
[2023-11-29 11:06] LABS: Actual Bicarbonate (HCO3a) 22.4 mEq/L (22-28); CO2 Tension 32.6 mmHg (35.0-45.0); Calcium, Ionized (arterial) 1.02 mmol/L (1.12-1.30); Carboxyhemoglobin (COHb) 0.4 gm% (0.0-3.0); Hematocrit-ABG 34 % (42.0-52.0); Hemoglobin (Hb) 11.4 g/dL (14.0-18.0); O2 Tension (PaO2), arterial 114.6 mmHg (> 70.0); Potassium - ABG Lab 3.58 mmol/L (3.70-5.30); pH, Arterial 7.454 (7.35-7.45)
[2023-11-29] MEDS: cefTRIAXone\\ROCEPHIN 1 GM in Sodium Chloride 0.9% 100 ML IVPB SCH (12:08)
[2023-11-29 14:45] LABS: Puncture Site Arterial Line
[2023-11-29] MEDS: NOREPINEPHRINE 8 MG/250 ML-D5W 250 ML IVPB SCH (16:13)
[2023-11-29 18:29] LABS: Anion Gap 15 mmol/L (10-20); BUN (Urea Nitrogen) 33 mg/dL (8.4-25.7); Calc. Creatinine Clearance 68 mL/min (70-130); Calcium 7.5 mg/dL (7.8-10.44); Carbon Dioxide 22 mmol/L (23-31); Chloride 108 mmol/L (98-107); Estimated GFR 45; Glucose 201 mg/dL (83-110); Magnesium 2.6 mg/dL (1.6-2.6); Potassium 3.8 mmol/L (3.5-5.1); Sodium 141 mmol/L (136-145)
[2023-11-30] MEDS: Metoclopramide HCl 10 MG (2 mL) VIAL IVP SCH (00:29)
[2023-11-30 04:58] LABS: #Basophils 0.04 10x3/uL (0.0-0.2); %Basophils 0.3 % (0.0-1.0); %Eosinophils 3.7 % (0.0-10.0); %Lymphocytes 10.7 % (21.0-51.0); %Monocytes 8.4 % (0.0-10.0); %Neutrophils 76.4 % (42.0-75.0); Hematocrit 32.5 % (42.0-52.0); Hemoglobin 10.6 g/dL (14.0-18.0); Mean Corpuscular HGB CONC 32.6 g/dL (32.0-36.0); Mean Corpuscular Hemoglobin 30.4 pg (27.0-31.0); Mean Corpuscular Volume 93.1 fL (78.0-98.0); Mean Platelet Volume 10.2 fL (7.4-10.4); Platelet Count 304 10x3/uL (130-400); RBC Distribution Width 14.5 % (11.5-14.5); Red Blood Cell (RBC) Count 3.49 mill/uL (4.70-6.10)
[2023-11-30 05:13] LABS: ALT (SGPT) 15 U/L (8-55); AST (SGOT) 30 U/L (5-34); Albumin 1.6 g/dL (3.4-4.8); Alkaline Phosphatase 105 U/L (40-110); Anion Gap 11 mmol/L (10-20); BUN (Urea Nitrogen) 30 mg/dL (8.4-25.7); Bilirubin, Total 0.9 mg/dL (0.2-1.2); Calc. Creatinine Clearance 68 mL/min (70-130); Calcium 7.5 mg/dL (7.8-10.44); Carbon Dioxide 24 mmol/L (23-31); Chloride 107 mmol/L (98-107); Estimated GFR 46; Globulin 3.2 g/dL (2.4-3.5); Glucose 208 mg/dL (83-110); Potassium 3.9 mmol/L (3.5-5.1); Protein, Total 4.8 g/dL (5.8-8.1); Sodium 138 mmol/L (136-145)
[2023-11-30] MEDS: Dextrose 5 % And 0.9 % NaCl 1,000 ML IV SCH (09:45)
[2023-11-30] MEDS: Furosemide 40 MG (4 mL) VIAL SLOW IVP SCH (09:45)
[2023-11-30 10:27] LABS: Actual Bicarbonate (HCO3a) 23.8 mEq/L (22-28); Calcium, Ionized (arterial) 1.04 mmol/L (1.12-1.30); Carboxyhemoglobin (COHb) 0.2 gm% (0.0-3.0); Hematocrit-ABG 35 % (42.0-52.0); O2 Tension (PaO2), arterial 101.5 mmHg (> 70.0); Potassium - ABG Lab 4.27 mmol/L (3.70-5.30); pH, Arterial 7.439 (7.35-7.45)
[2023-11-30 10:29] LABS: Puncture Site Arterial Line
[2023-11-30 13:36] LABS: Anion Gap 14 mmol/L (10-20); BUN (Urea Nitrogen) 28 mg/dL (8.4-25.7); Calc. Creatinine Clearance 65 mL/min (70-130); Calcium 7.7 mg/dL (7.8-10.44); Carbon Dioxide 21 mmol/L (23-31); Chloride 107 mmol/L (98-107); Estimated GFR 41; Glucose 170 mg/dL (83-110); Potassium 4.1 mmol/L (3.5-5.1); Sodium 138 mmol/L (136-145)
[2023-12-01] MEDS ORDERED: Calcium Chloride 1 GM/10 ML Abboject SYRINGE ONE (00:01)
[2023-12-01] MEDS ORDERED: Amiodarone 150 MG/3 ML VIAL ONE (00:01)
[2023-12-01] MEDS ORDERED: Magnesium 5 GM/10 ML Abboject SYRINGE ONE (00:01)
[2023-12-01] MEDS ORDERED: EPINEPHrine 1 MG/10 ML Abboject SYRINGE ONE (00:01)
[2023-12-01] MEDS ORDERED: Sodium Bicarb 50 MEQ/50 ML Abboject 8.4% SYRINGE ONE (00:01)
[2023-12-01 00:12] LABS: Actual Bicarbonate (HCO3a) 28.4 mEq/L (22-28); CO2 Tension 46.4 mmHg (35.0-45.0); Calcium, Ionized (arterial) 1.11 mmol/L (1.12-1.30); Carboxyhemoglobin (COHb) 0.7 gm% (0.0-3.0); Hematocrit-ABG 36 % (42.0-52.0); Hemoglobin (Hb) 12.2 g/dL (14.0-18.0); Potassium - ABG Lab 4.24 mmol/L (3.70-5.30); pH, Arterial 7.404 (7.35-7.45)
[2023-12-01 00:13] LABS: O2 Tension (PaO2), arterial 44.6 mmHg (> 70.0); Puncture Site LINE
[2023-12-01 00:27] LABS: Actual Bicarbonate (HCO3a) 22.8 mEq/L (22-28); Base Excess (BEa) -3.8 mEq/L (-2.0 to +3.0); CO2 Tension 47.6 mmHg (35.0-45.0); Calcium, Ionized (arterial) 1.33 mmol/L (1.12-1.30); Carboxyhemoglobin (COHb) 0.4 gm% (0.0-3.0); Hematocrit-ABG 37 % (42.0-52.0); Hemoglobin (Hb) 12.6 g/dL (14.0-18.0); O2 Tension (PaO2), arterial 61.6 mmHg (> 70.0); Potassium - ABG Lab 3.86 mmol/L (3.70-5.30); pH, Arterial 7.299 (7.35-7.45)
[2023-12-01 00:28] LABS: Puncture Site LINE
[2023-12-01 00:30] LABS: #Basophils 0.06 10x3/uL (0.0-0.2); %Basophils 0.3 % (0.0-1.0); %Eosinophils 2.7 % (0.0-10.0); %Monocytes 8.9 % (0.0-10.0); %Neutrophils 68.9 % (42.0-75.0); Hematocrit 33.9 % (42.0-52.0); Hemoglobin 11.2 g/dL (14.0-18.0); Mean Corpuscular Hemoglobin 30.9 pg (27.0-31.0); Mean Corpuscular Volume 93.4 fL (78.0-98.0); Mean Platelet Volume 10.3 fL (7.4-10.4); Platelet Count 286 10x3/uL (130-400); RBC Distribution Width 14.4 % (11.5-14.5); Red Blood Cell (RBC) Count 3.63 mill/uL (4.70-6.10)
[2023-12-01] MEDS ORDERED: Lidocaine 2 gm/D5W 500 ml 500 ML IVPB SCH (00:30)
[2023-12-01] MEDS: Magnesium 2 GM/50 ML(in water) 2 GM in Premix 1 BAG IVPB SCH (00:35)
[2023-12-01] MEDS: EPINEPHrine 1 MG/10 ML Abboject SYRINGE ONE (00:35)
[2023-12-01 00:52] LABS: ALT (SGPT) 14 U/L (8-55); AST (SGOT) 30 U/L (5-34); Albumin 1.5 g/dL (3.4-4.8); Alkaline Phosphatase 117 U/L (40-110); Anion Gap 14 mmol/L (10-20); BUN (Urea Nitrogen) 26 mg/dL (8.4-25.7); Bilirubin, Total 0.8 mg/dL (0.2-1.2); Calc. Creatinine Clearance 68 mL/min (70-130); Calcium 7.7 mg/dL (7.8-10.44); Carbon Dioxide 32 mmol/L (23-31); Chloride 104 mmol/L (98-107); Estimated GFR 44; Globulin 3.1 g/dL (2.4-3.5); Glucose 200 mg/dL (83-110); Magnesium 9.4 mg/dL (1.6-2.6); Potassium 4.6 mmol/L (3.5-5.1); Protein, Total 4.6 g/dL (5.8-8.1); Sodium 145 mmol/L (136-145)
[2023-12-01 00:55] LABS: Critical Call Chem Troponin I REHAB.JMB @0054; Troponin I 10.853 ng/mL (< 0.028)
[2023-12-01] MEDS: Vancomycin (BATCH) 1.5 GM in Premix 1 BAG IVPB SCH (01:05)
[2023-12-01] MEDS: Lactated Ringer's 500 ML IV SCH (01:06)
[2023-12-01 03:07] LABS: Lactic Acid 1.9 mmol/L (0.5-2.2)
[2023-12-01 05:41] LABS: Magnesium 3.2 mg/dL (1.6-2.6)
[2023-12-01] MEDS: Magnesium Sulfate 1 GM, IV Admixture Fee-Chemo 1 UNITS in Sodium Chloride 0.9% 100 ML IV SCH (06:29)
[2023-12-01 11:13] LABS: ALT (SGPT) 16 U/L (8-55); AST (SGOT) 31 U/L (5-34); Albumin 1.4 g/dL (3.4-4.8); Alkaline Phosphatase 129 U/L (40-110); Anion Gap 15 mmol/L (10-20); BUN (Urea Nitrogen) 26 mg/dL (8.4-25.7); Bilirubin, Total 0.9 mg/dL (0.2-1.2); Calc. Creatinine Clearance 65 mL/min (70-130); Calcium 7.8 mg/dL (7.8-10.44); Carbon Dioxide 21 mmol/L (23-31); Estimated GFR 41; Globulin 3.3 g/dL (2.4-3.5); Glucose 202 mg/dL (83-110); Magnesium 3.2 mg/dL (1.6-2.6); Phosphorus 3.8 mg/dL (2.3-4.7); Protein, Total 4.7 g/dL (5.8-8.1); Sodium 137 mmol/L (136-145)
[2023-12-01 11:26] LABS: Chloride 105 mmol/L (98-107)
[2023-12-01 14:39] VITALS: BP 116/75
[2023-12-01] MEDS: Lidocaine 2 gm/D5W 500 ml 500 ML IVPB SCH (16:45)
[2023-12-01 16:52] VITALS: TEMP 100.2
== END 2023-12-01 20:02 | disposition hospice, inpatient (51) | DRG 233 ==
LOC: ERS 15:06 → CCU 16:32
PROVIDERS: ADMIT Internal Medicine Cardiovascular Disease; ATTEND Internal Medicine Cardiovascular Disease
PROC: 4A023N7 Measurement of Cardiac Sampling and Pressure, Left Heart, Percutaneous Approach (ICD-10-PCS; 2023-11-23)
PROC: B2151ZZ Fluoroscopy of Left Heart using Low Osmolar Contrast (ICD-10-PCS; 2023-11-23)
PROC: B2111ZZ Fluoroscopy of Multiple Coronary Arteries using Low Osmolar Contrast (ICD-10-PCS; 2023-11-23)
PROC: 02100Z9 Bypass Coronary Artery, One Artery from Left Internal Mammary, Open Approach (ICD-10-PCS; 2023-11-25)
PROC: 02580ZZ Destruction of Conduction Mechanism, Open Approach (ICD-10-PCS; 2023-11-25)
PROC: 021209W Bypass Coronary Artery, Three Arteries from Aorta with Autologous Venous Tissue, Open Approach (ICD-10-PCS; 2023-11-25)
PROC: 06BQ4ZZ Excision of Left Saphenous Vein, Percutaneous Endoscopic Approach (ICD-10-PCS; 2023-11-25)
PROC: 02L70CK Occlusion of Left Atrial Appendage with Extraluminal Device, Open Approach (ICD-10-PCS; 2023-11-25)
PROC: 5A1221Z Performance of Cardiac Output, Continuous (ICD-10-PCS; 2023-11-25)
PROC: 3E033XZ Introduction of Vasopressor into Peripheral Vein, Percutaneous Approach (ICD-10-PCS; 2023-11-25)
PROC: 30233J1 Transfusion of Nonautologous Serum Albumin into Peripheral Vein, Percutaneous Approach (ICD-10-PCS; 2023-11-25)
PROC: 5A09357 Assistance with Respiratory Ventilation, Less than 24 Consecutive Hours, Continuous Positive Airway Pressure (ICD-10-PCS; 2023-11-25)
PROC: 4A133R1 Monitoring of Arterial Saturation, Peripheral, Percutaneous Approach (ICD-10-PCS; 2023-11-28)
PROC: 5A1945Z Respiratory Ventilation, 24-96 Consecutive Hours (ICD-10-PCS; 2023-11-28)
PROC: 0BH17EZ Insertion of Endotracheal Airway into Trachea, Via Natural or Artificial Opening (ICD-10-PCS; 2023-11-28)
PROC: 5A12012 Performance of Cardiac Output, Single, Manual (ICD-10-PCS; principal; 2023-12-01)
DX: I21.19 ST elevation (STEMI) myocardial infarction involving other coronary artery of inferior wall (principal); G93.41 Metabolic encephalopathy; I46.9 Cardiac arrest, cause unspecified; I49.01 Ventricular fibrillation; J96.01 Acute respiratory failure with hypoxia; R57.0 Cardiogenic shock; I48.19 Other persistent atrial fibrillation; I48.92 Unspecified atrial flutter; I10 Essential (primary) hypertension; E11.9 Type 2 diabetes mellitus without complications; E78.5 Hyperlipidemia, unspecified; K21.9 Gastro-esophageal reflux disease without esophagitis; Z98.890 Other specified postprocedural states; F17.210 Nicotine dependence, cigarettes, uncomplicated; Z95.1 Presence of aortocoronary bypass graft; Z66 Do not resuscitate; Z51.5 Encounter for palliative care; I25.10 Atherosclerotic heart disease of native coronary artery without angina pectoris; Z79.899 Other long term (current) drug therapy; E66.9 Obesity, unspecified; Z68.38 Body mass index [BMI] 38.0-38.9, adult
CPT/HCPCS: 33210; 36415; 36416; 36430; 36600; 71045; 80048; 80053; 80061; 82805; 83036; 83605; 83735; 83880; 84100; 84439; 84443; 84481; 84484; 85014; 85018; 85025; 85049; 85610; 85730; 86850; 86900; 86901; 93005; 93010; 93306; 93458; 93798; 94002; 94003; 94640; 94660; 96374; 97139; A4311; A4648; C1751; C1760; C1769; C1889; J0171; J0282; J0283; J0461; J0665; J0690; J0696; J1100; J1250; J1644; J1815; J1885; J1940; J2001; J2060; J2150; J2250; J2270; J2440; J2704; J2720; J2765; J3010; J3370; J3475; J3480; J3490; J7042; J7050; J7070; J7120; J7620; P9045; Q9967; S0017; S0028

== ENCOUNTER 2023-12-01 20:02 | Inpatient (IN) | payer OTHER ==
[2023-12-01] MEDS ORDERED: Morphine 2 MG/ML VIAL SLOW IVP PRN (20:20)
[2023-12-01] MEDS ORDERED: Haloperidol Lactate 5 MG/ML VIAL SLOW IVP PRN (20:30)
[2023-12-01] MEDS ORDERED: Hyoscyamine SL 0.125 MG TAB SL PRN (20:30)
[2023-12-01] MEDS ORDERED: Lorazepam 2 MG/ML VIAL SLOW IVP PRN (20:30)
[2023-12-01] MEDS ORDERED: Senokot S 8.6-50 MG TAB PO PRN (20:30)
[2023-12-01] MEDS ORDERED: Ondansetron ODT 4 MG TAB PO PRN (20:30)
== END 2023-12-01 20:49 | disposition expired | DRG 951 ==
LOC: CCU 20:02
PROVIDERS: ADMIT Internal Medicine Nephrology; ATTEND Internal Medicine Nephrology
DX: Z51.5 Encounter for palliative care (principal); I21.19 ST elevation (STEMI) myocardial infarction involving other coronary artery of inferior wall; I48.91 Unspecified atrial fibrillation; I25.10 Atherosclerotic heart disease of native coronary artery without angina pectoris; I10 Essential (primary) hypertension; E11.9 Type 2 diabetes mellitus without complications; E78.5 Hyperlipidemia, unspecified; K21.9 Gastro-esophageal reflux disease without esophagitis; F17.210 Nicotine dependence, cigarettes, uncomplicated; Z98.890 Other specified postprocedural states